=== PATIENT | female | born 1945 | race Caucasian/White ===

== ENCOUNTER 2017-07-09 03:06 | Inpatient (IN) | payer OTHER ==
[2017-07-09] MEDS: SODIUM CHLORIDE 0.9% 1L BAG IV* (05:18)
[2017-07-09 06:01] LABS: HEMATOCRIT 32.6 % (37.0-47.0); HEMOGLOBIN 10.5 g/dl (12.0-16.0); MEAN CORPUSCULAR HEMOGLOBIN 28.8 pg (29.0-33.0); MEAN CORPUSCULAR HGB CONC 32.2 g/dl (32.0-37.0); MEAN CORPUSCULAR VOLUME 89.3 fl (82.0-101.0); MEAN PLATELET VOLUME 10.2 fl (7.4-10.4); PLATELET COUNT 269 10^3/UL (140-415); RED BLOOD COUNT 3.65 10^6/ul (4.20-5.40); RED CELL DISTRIBUTION WIDTH 14.6 % (11.5-14.5)
[2017-07-09 06:01] LABS: WHITE BLOOD COUNT 12.2 10^3/ul (4.8-10.8)
[2017-07-09 06:20] LABS: INR 1.04; PROTIME 13.7 Sec (11.9-14.9); PT RATIO 1.1
[2017-07-09 06:21] LABS: ALANINE AMINOTRANSFERASE 34 IU/L (13-69); ALBUMIN 4.2 g/dl (3.3-4.9); ALBUMIN/GLOBULIN RATIO 1.07; ALKALINE PHOSPHATASE 140 IU/L (42-121); ANION GAP 20 (8-16); ASPARTATE AMINO TRANSFERASE 28 IU/L (15-46); BILIRUBIN,INDIRECT 0.4 mg/dl (0-1.1); BILIRUBIN,TOTAL 0.4 mg/dl (0.2-1.3); BLOOD UREA NITROGEN 41 mg/dl (7-20); CALCIUM 9.6 mg/dl (8.4-10.2); CARBON DIOXIDE 29 mmol/L (21-31); CHLORIDE 96 mmol/L (97-110); CREATININE 1.23 mg/dl (0.44-1.00); GLUCOSE 260 mg/dl (70-220); POTASSIUM 4.2 mmol/L (3.5-5.1); SODIUM 141 mmol/L (135-144); TOTAL PROTEIN 8.1 g/dl (6.1-8.1)
[2017-07-09 06:30] LABS: LACTIC ACID 4.4 mmol/L (0.5-2.0)
[2017-07-09 06:31] LABS: TROPONIN-I 0.013 ng/ml (0.00-0.12)
[2017-07-09] MEDS: METHYLPREDNISOLONE 125 MG INJ IV (06:47)
[2017-07-09] MEDS: VANCOMYCIN 1 GM (PMX) 250 ML IVPB (06:47)
[2017-07-09] MEDS: ALBUTEROL 0.083% (NEB) 2.5 MG/3 ML AMP NEB (06:56)
[2017-07-09 07:01] LABS: POSITIVE DIFF @See below
[2017-07-09 07:02] LABS: ADD MAN DIFF? YES
[2017-07-09] MEDS: CEFEPIME 2GM/50 ML (PMX) 50 ML IVPB (07:15)
[2017-07-09 07:18] LABS: ADD UMIC YES; UR ASCORBIC ACID NEGATIVE (NEGATIVE); UR BACTERIA FEW /HPF (NONE SEEN); UR BILIRUBIN (Dip) NEGATIVE (NEGATIVE); UR BLOOD (Dip) NEGATIVE (NEGATIVE); UR CLARITY SLIGHTLY CLOUDY (CLEAR); UR COLOR YELLOW (YELLOW); UR GLUCOSE (Dip) 3+ mg/dL (NEGATIVE); UR KETONES (Dip) NEGATIVE (NEGATIVE); UR LEUKOCYTE ESTERASE (Dip) 2+ Leu/ul (NEGATIVE); UR MUCUS FEW /HPF (NONE SEEN); UR NITRITE (Dip) POSITIVE (NEGATIVE); UR RBC 1 /HPF (0-5); UR SPECIFIC GRAVITY (Dip) 1.009 (1.003-1.030); UR TOTAL PROTEIN (Dip) 2+ mg/dl (NEGATIVE); UR UROBILINOGEN (Dip) NEGATIVE (NEGATIVE); UR WBC 61 /HPF (0-5)
[2017-07-09 07:37] LABS: BAND NEUTROPHILS % (M) 9 % (0-4); LYMPHOCYTES # 1.1 10^3/ul (0.8-2.9); LYMPHOCYTES % (M) 9 % (15-51); MONOCYTE # 1.2 10^3/ul (0.3-0.9); MONOCYTE #M 1.2 10^3/ul (0.3-0.9); MONOCYTES % (M) 10 % (0-11); SEG NEUT #M 8.9 10^3/ul (1.7-7.5); SEGMENTED NEUTROPHILS (M) % 72 % (39-77)
[2017-07-09 09:01] LABS: LACTIC ACID 4.1 mmol/L (0.5-2.0)
[2017-07-09] MEDS: SOD CHLORIDE 0.9% 1,000 ML IV ×4 (09:16→15:03)
[2017-07-09] MEDS ORDERED: ONDANSETRON 4 MG INJ IV ×2 (11:30→15:30)
[2017-07-09] MEDS ORDERED: ACETAMINOPHEN 325 MG TAB PO (11:30)
[2017-07-09 11:50] LABS: LACTIC ACID 7.6 mmol/L (0.5-2.0)
[2017-07-09] MEDS ORDERED: LIDOCAINE 1% (MPF) 5 ML VIAL SC (12:30)
[2017-07-09] MEDS ORDERED: morphine 2 MG INJ IV (15:30)
[2017-07-09] MEDS ORDERED: GLUCOSE GEL 15 GRAM TUBE BUCCAL (15:30)
[2017-07-09] MEDS ORDERED: DOCUSATE SODIUM 100 MG CAP PO (15:30)
[2017-07-09] MEDS ORDERED: HYDROCODONE/APAP (5/325) TAB PO (15:30)
[2017-07-09] MEDS ORDERED: VANCOMYCIN IV PER PHARMACY XX (15:30)
[2017-07-09] MEDS ORDERED: DEXTROSE 50% 50 ML SYRINGE IV ×2 (15:30)
[2017-07-09] MEDS ORDERED: GLUCOSE GEL 15 GRAM TUBE PO ×2 (15:30)
[2017-07-09] MEDS ORDERED: GLUCAGON 1 MG INJ IM (15:30)
[2017-07-09] MEDS ORDERED: NACL 0.9% 3 ML SYG IV (15:30)
[2017-07-09] MEDS: Discontinue current oral sulfonylureas (glyburide, glipizide, and/or glimepiride) prior to XX (15:31)
[2017-07-09] MEDS: HYPOGLYCEMIA PROTOCOL when Glucose is <70 mg/dL or symptomatic <90 mg/dL. XX (15:31)
[2017-07-09] MEDS: PIPER-TAZO 3.375 GM IV (PMX) 50 ML IVPB ×2 (17:33→23:41)
[2017-07-09] MEDS: INSULIN ASPART [NOVOLOG] 3 ML PEN SC ×3 (17:34→20:34)
[2017-07-09] MEDS: NORTRIPTYLINE 25 MG CAP PO (20:26)
[2017-07-09] MEDS: INSULIN GLARGINE [LANtus] 3 ML PEN SC (20:34)
[2017-07-10] MEDS: ACCU-CHEK XX (02:29)
[2017-07-10] MEDS: SOD CHLORIDE 0.9% 1,000 ML IV (02:30)
[2017-07-10] MEDS: VANCOMYCIN 500MG/NS (PMX) 100 ML IVPB (05:14)
[2017-07-10] MEDS: PIPER-TAZO 3.375 GM IV (PMX) 50 ML IVPB ×4 (06:34→23:43)
[2017-07-10 06:37] LABS: ADD MAN DIFF? NO
[2017-07-10 07:05] LABS: ANION GAP 13 (8-16); BLOOD UREA NITROGEN 18 mg/dl (7-20); CALCIUM 8.1 mg/dl (8.4-10.2); CARBON DIOXIDE 25 mmol/L (21-31); CHLORIDE 109 mmol/L (97-110); CREATININE 0.79 mg/dl (0.44-1.00); GLUCOSE 119 mg/dl (70-220); MAGNESIUM 1.1 mg/dl (1.7-2.5); PHOSPHORUS 2.9 mg/dl (2.5-4.9); POTASSIUM 3.5 mmol/L (3.5-5.1); SODIUM 143 mmol/L (135-144)
[2017-07-10 07:17] LABS: WHITE BLOOD COUNT 9.1 10^3/ul (4.8-10.8)
[2017-07-10 07:17] LABS: BASOPHILS % 0.2 % (0.0-2.0); EOSINOPHILS % 0.3 % (0.0-7.0); HEMOGLOBIN 7.9 g/dl (12.0-16.0); LYMPHOCYTES # 1.4 10^3/ul (0.8-2.9); LYMPHOCYTES % 14.9 % (15.0-51.0); MEAN CORPUSCULAR HEMOGLOBIN 28.7 pg (29.0-33.0); MEAN CORPUSCULAR HGB CONC 31.6 g/dl (32.0-37.0); MEAN CORPUSCULAR VOLUME 90.9 fl (82.0-101.0); MEAN PLATELET VOLUME 10.3 fl (7.4-10.4); MONOCYTE # 0.8 10^3/ul (0.3-0.9); MONOCYTES % 9.1 % (0.0-11.0); NEUTROPHIL # 6.8 10^3/ul (1.6-7.5); NEUTROPHILS % 75.3 % (39.0-77.0); PLATELET COUNT 174 10^3/UL (140-415); RED BLOOD COUNT 2.75 10^6/ul (4.20-5.40); RED CELL DISTRIBUTION WIDTH 15.1 % (11.5-14.5)
[2017-07-10 07:33] LABS: LACTIC ACID 0.9 mmol/L (0.5-2.0)
[2017-07-10] MEDS: NORTRIPTYLINE 25 MG CAP PO ×2 (08:52→20:33)
[2017-07-10] MEDS: INSULIN ASPART [NOVOLOG] 3 ML PEN SC ×7 (08:54→20:26)
[2017-07-10] MEDS ORDERED: ENOXAPARIN 40 MG/0.4 ML SYG SC (09:00)
[2017-07-10] MEDS: FUROSEMIDE 20 MG INJ IV (13:31)
[2017-07-10] MEDS: ACETAMINOPHEN 325 MG TAB PO (17:42)
[2017-07-10] MEDS: INSULIN GLARGINE [LANtus] 3 ML PEN SC (20:00)
[2017-07-11] MEDS: ACCU-CHEK XX (01:22)
[2017-07-11] MEDS: PIPER-TAZO 3.375 GM IV (PMX) 50 ML IVPB ×3 (05:25→18:25)
[2017-07-11] MEDS: NORTRIPTYLINE 25 MG CAP PO ×2 (09:12→20:42)
[2017-07-11] MEDS: INSULIN ASPART [NOVOLOG] 3 ML PEN SC ×7 (09:16→20:45)
[2017-07-11] MEDS: hydrALAzine 20 MG INJ IV ×2 (12:09→20:42)
[2017-07-11] MEDS: METOPROLOL 25 MG TAB PO (20:42)
[2017-07-11] MEDS: FERROUS SULFATE (EC) 325 MG TAB PO (20:42)
[2017-07-11] MEDS: ATORVASTATIN 40 MG TAB PO (20:42)
[2017-07-11] MEDS: INSULIN GLARGINE [LANtus] 3 ML PEN SC (20:47)
[2017-07-12] MEDS: POTASSIUM CHLORIDE (SR) 20 MEQ TAB PO (00:55)
[2017-07-12] MEDS: MAGNESIUM SULFATE 2 GM/50 ML 50 ML IVPB (00:57)
[2017-07-12] MEDS: ACCU-CHEK XX (02:00)
[2017-07-12] MEDS: LEVOFLOXACIN 500 MG TAB PO (05:23)
[2017-07-12] MEDS ORDERED: LEVOFLOXACIN 500 MG TAB GTB (06:00)
[2017-07-12] MEDS: FERROUS SULFATE (EC) 325 MG TAB PO ×2 (08:38→20:47)
[2017-07-12] MEDS: ASPIRIN (EC) 81 MG TAB PO (08:38)
[2017-07-12] MEDS: FUROSEMIDE 40 MG TAB PO (08:38)
[2017-07-12] MEDS: NORTRIPTYLINE 25 MG CAP PO ×2 (08:38→20:45)
[2017-07-12] MEDS: glipiZIDE 5 MG TAB PO (08:39)
[2017-07-12] MEDS: METOPROLOL 25 MG TAB PO ×2 (08:39→20:47)
[2017-07-12] MEDS: LISINOPRIL 5 MG TAB PO (08:39)
[2017-07-12 08:42] LABS: ADD MAN DIFF? NO
[2017-07-12] MEDS: INSULIN ASPART [NOVOLOG] 3 ML PEN SC ×7 (08:43→21:00)
[2017-07-12 08:55] LABS: BASOPHILS % 0.5 % (0.0-2.0); EOSINOPHILS # 0.3 10^3/ul (0.0-0.5); EOSINOPHILS % 3.3 % (0.0-7.0); HEMATOCRIT 27.3 % (37.0-47.0); HEMOGLOBIN 8.8 g/dl (12.0-16.0); LYMPHOCYTES # 1.5 10^3/ul (0.8-2.9); MEAN CORPUSCULAR HEMOGLOBIN 28.8 pg (29.0-33.0); MEAN CORPUSCULAR HGB CONC 32.2 g/dl (32.0-37.0); MEAN CORPUSCULAR VOLUME 89.2 fl (82.0-101.0); MEAN PLATELET VOLUME 10.2 fl (7.4-10.4); MONOCYTE # 0.6 10^3/ul (0.3-0.9); MONOCYTES % 8.1 % (0.0-11.0); NEUTROPHIL # 5.1 10^3/ul (1.6-7.5); NEUTROPHILS % 67.7 % (39.0-77.0); PLATELET COUNT 219 10^3/UL (140-415); RED BLOOD COUNT 3.06 10^6/ul (4.20-5.40); RED CELL DISTRIBUTION WIDTH 14.9 % (11.5-14.5)
[2017-07-12 08:55] LABS: WHITE BLOOD COUNT 7.6 10^3/ul (4.8-10.8)
[2017-07-12 09:16] LABS: ALBUMIN 3.9 g/dl (3.3-4.9); ANION GAP 14 (8-16); BLOOD UREA NITROGEN 12 mg/dl (7-20); CARBON DIOXIDE 29 mmol/L (21-31); CHLORIDE 100 mmol/L (97-110); CREATININE 1.02 mg/dl (0.44-1.00); GLUCOSE 209 mg/dl (70-220); MAGNESIUM 2.2 mg/dl (1.7-2.5); PHOSPHORUS 3.4 mg/dl (2.5-4.9); POTASSIUM 3.7 mmol/L (3.5-5.1); SODIUM 139 mmol/L (135-144)
[2017-07-12 09:18] LABS: ANION GAP 15 (8-16); BLOOD UREA NITROGEN 13 mg/dl (7-20); CALCIUM 9.1 mg/dl (8.4-10.2); CARBON DIOXIDE 28 mmol/L (21-31); CHLORIDE 100 mmol/L (97-110); CREATININE 0.99 mg/dl (0.44-1.00); GLUCOSE 200 mg/dl (70-220); POTASSIUM 3.9 mmol/L (3.5-5.1); SODIUM 139 mmol/L (135-144)
[2017-07-12] MEDS ORDERED: ALBUTEROL 0.083% (NEB) 2.5 MG/3 ML AMP HHN (13:30)
[2017-07-12] MEDS: GUAIFENESIN/DM 5ML CUP PO (14:51)
[2017-07-12] MEDS: CEPASTAT LOZENGE MT (17:45)
[2017-07-12] MEDS: ATORVASTATIN 40 MG TAB PO (20:45)
[2017-07-12] MEDS: hydrALAzine 20 MG INJ IV (20:47)
[2017-07-12] MEDS: INSULIN GLARGINE [LANtus] 3 ML PEN SC (20:56)
[2017-07-13] MEDS: ACCU-CHEK XX (02:00)
[2017-07-13] MEDS: LEVOFLOXACIN 250 MG TAB PO (05:56)
[2017-07-13] MEDS: LEVOFLOXACIN 500 MG TAB PO (05:57)
[2017-07-13] MEDS ORDERED: LEVOFLOXACIN 250 MG TAB GTB (06:00)
[2017-07-13 07:23] LABS: ADD MAN DIFF? NO
[2017-07-13 07:28] LABS: WHITE BLOOD COUNT 7.7 10^3/ul (4.8-10.8)
[2017-07-13 07:28] LABS: BASOPHILS % 0.4 % (0.0-2.0); EOSINOPHILS # 0.2 10^3/ul (0.0-0.5); EOSINOPHILS % 2.3 % (0.0-7.0); HEMATOCRIT 26.8 % (37.0-47.0); HEMOGLOBIN 8.7 g/dl (12.0-16.0); LYMPHOCYTES # 1.5 10^3/ul (0.8-2.9); LYMPHOCYTES % 19.4 % (15.0-51.0); MEAN CORPUSCULAR HGB CONC 32.5 g/dl (32.0-37.0); MEAN CORPUSCULAR VOLUME 89.3 fl (82.0-101.0); MEAN PLATELET VOLUME 9.8 fl (7.4-10.4); MONOCYTE # 0.8 10^3/ul (0.3-0.9); MONOCYTES % 10.7 % (0.0-11.0); NEUTROPHIL # 5.2 10^3/ul (1.6-7.5); NEUTROPHILS % 66.8 % (39.0-77.0); PLATELET COUNT 239 10^3/UL (140-415); RED CELL DISTRIBUTION WIDTH 15.2 % (11.5-14.5)
[2017-07-13 07:50] LABS: ALBUMIN 3.6 g/dl (3.3-4.9); ANION GAP 15 (8-16); BLOOD UREA NITROGEN 17 mg/dl (7-20); CALCIUM 8.9 mg/dl (8.4-10.2); CARBON DIOXIDE 27 mmol/L (21-31); CHLORIDE 102 mmol/L (97-110); CREATININE 1.17 mg/dl (0.44-1.00); GLUCOSE 151 mg/dl (70-220); MAGNESIUM 1.7 mg/dl (1.7-2.5); PHOSPHORUS 3.8 mg/dl (2.5-4.9); POTASSIUM 4.1 mmol/L (3.5-5.1); SODIUM 140 mmol/L (135-144)
[2017-07-13] MEDS: NORTRIPTYLINE 25 MG CAP PO ×2 (08:24→20:10)
[2017-07-13] MEDS: LISINOPRIL 5 MG TAB PO (08:24)
[2017-07-13] MEDS: ASPIRIN (EC) 81 MG TAB PO (08:26)
[2017-07-13] MEDS: glipiZIDE 5 MG TAB PO (08:26)
[2017-07-13] MEDS: FERROUS SULFATE (EC) 325 MG TAB PO ×2 (08:26→20:10)
[2017-07-13] MEDS: FUROSEMIDE 40 MG TAB PO (08:26)
[2017-07-13] MEDS: METOPROLOL 25 MG TAB PO ×2 (08:27→20:11)
[2017-07-13] MEDS: INSULIN ASPART [NOVOLOG] 3 ML PEN SC ×7 (08:28→20:14)
[2017-07-13] MEDS: CEPASTAT LOZENGE MT ×8 (16:12→23:00)
[2017-07-13 18:11] LABS: AADO2 Arterial 29.2 mmHg (7.0-24.0); Allen Test ACCEPTAB; Arterial Blood Gas Oxygen Sat 94.2 mmHG (95.0-100.0); Arterial COHb 0.2 % (0.0-3.0); Arterial Fraction of Oxyhgb 93.7 % (93.0-99.0); Arterial HCO3 27.2 mmol/L (22.0-26.0); Arterial MetHb 0.3 % (0.0-1.5); Arterial Total Hemglobin 10.2 g/dl (12.0-18.0); MODE ROOM AIR; Site Left Radial
[2017-07-13] MEDS: ATORVASTATIN 40 MG TAB PO (20:11)
[2017-07-13] MEDS: INSULIN GLARGINE [LANtus] 3 ML PEN SC (20:13)
[2017-07-13] MEDS: GUAIFENESIN/DM 5ML CUP PO (20:25)
[2017-07-14] MEDS: CEPASTAT LOZENGE MT ×17 (01:00→17:28)
[2017-07-14] MEDS: ACCU-CHEK XX (01:38)
[2017-07-14] MEDS: METOPROLOL 25 MG TAB PO ×2 (01:38→07:54)
[2017-07-14] MEDS: LEVOFLOXACIN 250 MG TAB PO (06:11)
[2017-07-14] MEDS: hydrALAzine 20 MG INJ IV (07:39)
[2017-07-14] MEDS: LISINOPRIL 5 MG TAB PO (07:54)
[2017-07-14] MEDS: FUROSEMIDE 40 MG TAB PO (07:54)
[2017-07-14] MEDS: NORTRIPTYLINE 25 MG CAP PO (08:04)
[2017-07-14] MEDS: FERROUS SULFATE (EC) 325 MG TAB PO (08:04)
[2017-07-14] MEDS: glipiZIDE 5 MG TAB PO (08:04)
[2017-07-14] MEDS: ASPIRIN (EC) 81 MG TAB PO (08:04)
[2017-07-14] MEDS: INSULIN ASPART [NOVOLOG] 3 ML PEN SC ×6 (08:23→17:30)
[2017-07-14 09:02] LABS: ADD MAN DIFF? NO; BASOPHILS % 0.5 % (0.0-2.0); EOSINOPHILS # 0.2 10^3/ul (0.0-0.5); EOSINOPHILS % 2.9 % (0.0-7.0); HEMATOCRIT 27.2 % (37.0-47.0); HEMOGLOBIN 8.9 g/dl (12.0-16.0); LYMPHOCYTES # 1.4 10^3/ul (0.8-2.9); MEAN CORPUSCULAR HGB CONC 32.7 g/dl (32.0-37.0); MEAN CORPUSCULAR VOLUME 88.6 fl (82.0-101.0); MEAN PLATELET VOLUME 9.9 fl (7.4-10.4); MONOCYTE # 0.8 10^3/ul (0.3-0.9); MONOCYTES % 9.9 % (0.0-11.0); NEUTROPHIL # 5.3 10^3/ul (1.6-7.5); NEUTROPHILS % 68.2 % (39.0-77.0); PLATELET COUNT 259 10^3/UL (140-415); RED BLOOD COUNT 3.07 10^6/ul (4.20-5.40); RED CELL DISTRIBUTION WIDTH 15.3 % (11.5-14.5)
[2017-07-14 09:02] LABS: WHITE BLOOD COUNT 7.8 10^3/ul (4.8-10.8)
[2017-07-14 09:46] LABS: ALBUMIN 3.5 g/dl (3.3-4.9); ANION GAP 16 (8-16); BLOOD UREA NITROGEN 19 mg/dl (7-20); CALCIUM 8.5 mg/dl (8.4-10.2); CARBON DIOXIDE 27 mmol/L (21-31); CHLORIDE 103 mmol/L (97-110); CREATININE 1.04 mg/dl (0.44-1.00); GLUCOSE 184 mg/dl (70-220); PHOSPHORUS 3.6 mg/dl (2.5-4.9); POTASSIUM 3.6 mmol/L (3.5-5.1); SODIUM 142 mmol/L (135-144)
[2017-07-14 10:04] LABS: MAGNESIUM 1.6 mg/dl (1.7-2.5)
== END 2017-07-14 18:09 | disposition home health service (06) | DRG 871 ==
LOC: FTE 03:06 → MS3 11:13 → MS4 16:00
DX: A41.9 Sepsis, unspecified organism (principal); G93.40 Encephalopathy, unspecified; N17.9 Acute kidney failure, unspecified; I38 Endocarditis, valve unspecified; E11.9 Type 2 diabetes mellitus without complications; D50.9 Iron deficiency anemia, unspecified; I12.9 Hypertensive chronic kidney disease with stage 1 through stage 4 chronic kidney disease, or unspecified chronic kidney disease; N39.0 Urinary tract infection, site not specified; E11.22 Type 2 diabetes mellitus with diabetic chronic kidney disease; N18.9 Chronic kidney disease, unspecified; J40 Bronchitis, not specified as acute or chronic
CPT/HCPCS: 36415; 36600; 71010; 80048; 80053; 80069; 81001; 82803; 82962; 83605; 83735; 84100; 84484; 85025; 85610; 85730; 87040; 87086; 87400; 93005; 93306; 94664; 96374; 96375; 97163; 99291-25; J1940